=== PATIENT | male | born 1945 | race Caucasian/White ===

== ENCOUNTER 2021-12-20 09:32 | Emergency (ER) | payer MEDICARE, OTHER ==
[2021-12-20] MEDS ORDERED: Ondansetron 4 MG Tab.DIS PO ONE (10:18)
[2021-12-20] MEDS ORDERED: Lidocaine 1% 10 ML MDV INJECT ONE (10:19)
== END 2021-12-20 12:45 | disposition home or self-care (01) ==
LOC: JD.ED 09:32
DX: S06.0X0A Concussion without loss of consciousness, initial encounter (principal); S01.512A Laceration without foreign body of oral cavity, initial encounter; R55 Syncope and collapse; I10 Essential (primary) hypertension
CPT/HCPCS: 12013; 36415; 71045; 80053; 85025; 93005; 99284; A9270; 93010; 99283